=== PATIENT | male | born 1980 | race Caucasian/White ===

== ENCOUNTER 2018-04-01 08:35 | Day surgery (SDC) | payer OTHER ==
[2018-04-01] MEDS ORDERED: LACTATED RINGERS 1,000 ML IV ONE ×2 (08:45→11:47)
[2018-04-01] MEDS ORDERED: ceFAZolin 2 GM/50 ML 2 GM/50 ML BAG IV ONE (09:09)
--- NOTE | 2018-04-01 09:58 | ANESTHESIA ---
Pre-Anesthesia VS, & Labs - Diagnosis Left IH - Procedure Left IHR Height 6 ft Weight (kg) 84 kg - NPO >8 hours - Lab Results Lab results reviewed: Yes Home Medications and Allergies Home Medications: Ambulatory Orders Medication Instructions Recorded Confirmed Cyclobenzaprine [Flexeril] 10 mg PO Q8HR 03/25/18 03/28/18 SUMAtriptan succinate [Sumatriptan 100 mg PO DAILY PRN 03/25/18 03/28/18 Succinate] Allergies/Adverse Reactions: Allergies Allergy/AdvReac Type Severity Reaction Status Date / Time No Known Drug Allergies Allergy Verified 01/10/14 17:06 Anes History & Medical History - Anesthetic History Anesthesia Complications: reports: No previous complications Family history of Anesthesia Complications: Denies Family history of Malignant Hyperthermia: Denies - Medical History Cardiovascular: reports: None Pulmonary: reports: None Gastrointestinal: reports: Ulcers Urinary: reports: None Neuro: reports: None Musculoskeletal: reports: None, Other Endocrine/Autoimmune: reports: None Blood Disorders: reports: None Skin: reports: None Smoking Status: Never smoker Psychosocial: reports: No issues indicated - Surgical History General: Other Eyes Ears Nose Throat (EENT): Other Exam General: Alert, Oriented x3, Cooperative, No acute distress Dental: WNL Mouth Openin Fingerbreadth Neck Mobility: Normal Mallampati classification: I Thyromental Distance: 4-6 cm Respiratory: Lungs clear Cardiovascular: Regular rate Plan Anesthesia Type: General Consent for Procedure(s) Verified and Reviewed: Yes Code Status: Attempt Resuscitation ASA classification: 1-Healthy patient Is this case an emergency?: No
[2018-04-01] MEDS ORDERED: BUPIVACAINE 0.5% PF 30 ML VIAL ONE (10:30)
[2018-04-01] MEDS ORDERED: BUPIVACAINE 0.5% PF 30 ML VIAL INFIL ONE ×2 (11:24)
[2018-04-01] MEDS ORDERED: PROPOFOL 200 MG/20 ML VIAL IVP ONE (11:30)
[2018-04-01] MEDS ORDERED: LIDOCAINE-MPF 2% 5 ML VIAL IM ONE (11:30)
[2018-04-01] MEDS ORDERED: ONDANSETRON 4 MG/2 ML VIAL IVP ONE (11:30)
[2018-04-01] MEDS ORDERED: fentaNYL 250 MCG/5 ML VIAL IVP ONE (11:30)
[2018-04-01] MEDS ORDERED: DEXAMETHASONE 4 MG/ML VIAL IVP ONE (11:30)
[2018-04-01] MEDS ORDERED: MIDAZOLAM 2 MG/2 ML VIAL IVP ONE (11:30)
[2018-04-01] MEDS ORDERED: KETOROLAC 30 MG/ML VIAL IVP ONE (11:30)
[2018-04-01] MEDS ORDERED: fentaNYL 100 MCG/2 ML VIAL IVP ONE (11:30)
--- NOTE | 2018-04-01 12:40 | OPERATIVE REPORT ---
Operative Report - General Procedure Date: 04/01/18 Planned Procedure: Recurrent left inguinal herniorrhaphy Pre-Op Diagnosis: Recurrent left inguinal hernia Procedure Performed: Recurrent direct left inguinal herniorrhaphy with mesh and removal of old mesh Post Op Diagnosis: Recurrent direct left inguinal hernia (mesh not found to be attached to the - Procedure Note Primary Surgeon: Baldo Rivers MD Anesthesia Provider: Jai Muñoz CRNA Anesthesia Technique: General LMA, Local (30 mL's of half percent Marcaine) IV Fluids (mL): 400 Estimated Blood Loss (mL): 10 Complications: None. - Other Other Information/Narrative: OPERATIVE DESCRIPTION/REPORT: After verbal and written informed consent was obtained detailing the risks of infection, bleeding requiring transfusion with its risks, nerve injury, and , and after I met with the patient confirming the surgery and the site of the surgery and after initialing the site of the surgery with a surgical marker , the patient was brought to the operative suite and placed supine on the operating table. Great care was taken to avoid pressure points to prevent pressure necrosis or nerve injury. Monitoring devices were applied along with TEDs and pneumatic compressive stockings (to prevent DVT). The patient received preoperative antibiotics for surgical prophylaxis. Jai Muñoz CRNA sedated and anethetized the patient for the entire procedure. The patient was prepped and draped in the usual sterile manner. With the patient draped my initials were clearly visible. A "time in" then confirmed that the patient was identified with 3 identifiers (name, date and medical record number), the history and physical was in the chart, the signed consent confirming the procedure was in the chart, the patient was in the correct position, the aforementioned prophylactic measures were in place or given, we had the correct personnel and equipment to complete the procedure and that anesthesia, surgery and nursing were given an opportunuty to express any concerns. With the agreement of everyone in the room, we proceeded with the operation. An inguinal incision was made tracing the previous incision and dissection was carried down to the external oblique aponeurosis using a combination of Metzenbaum scissors and Bovie electrocautery. The external oblique aponeurosis was cleared of overlying adherent tissue, and the external ring was delineated. The external oblique was the incised with a scalpel and this incision was carried out to the external ring using Metzenbaum scissors. Having exposed the inguinal canal, what was immediately apparent was that the mesh was not attached at any point to the shelving edge and instead was secured to the conjoined tendon medially but not to the pubic tubercle. As a result the mesh had "bunched up" superiorly and laterally allowing a direct hernia to come through. The cord structures were from the canal and the mesh using a combination of blunt dissection, Bovie electrocautery and Metzenbaum scissors, and a Gennaro drain was placed around the cord structures at the level of the pubic tubercle. This Drewsey drain was then used to retract the cord structures as needed. Adherent cremasteric muscle was dissected free from the cord using Bovie electrocautery. Extensive dissection was required to free the mesh from its adhesions. Prolene sutures were encountered and removed. In as much as I could tell the mesh was excised totally. The cord was then explored using a combination of sharp and blunt dissection, and no sac was found. The hernia was found coming from the floor of the inguinal canal medial to the inferior epigastric vessels. This was dissected back to the hernia opening. The hernia was inverted back into the abdominal cavity and a large Bard Perfix plug (Ref# [id number], Lot# [id number], used by 11-23) inserted into the hernia defect. The plug was secured to the edge of the hernia defect using interrupted 2-0 PDS sutures. This permitted the floor of the inguinal canal to be repaired without the hernia in my way. The Perfix enlay patch was then placed on the floor of the inguinal canal and secured at the pubic tubercle using a 2-0 PDS suture. The mesh was the secured superiorly to the conjoined tendon and inferiorly to the shelving edge of Pouparts ligament using two separate running 2-0 PDS sutures. Of course, from my description, this mesh also covered the direct defect. The mesh was secured around the cord structures with a 2-0 PDS loosely thus creating a new internal ring. The Drewsey drain was removed. The wound was then irrigated using sterile saline, and hemostasis was obtained using Bovie electrocautery. The incision in the external oblique was approximated using a 2-0 Vicryl in a running fashion , thus reforming the external ring. The fascia and skin were then injected with 30 mL of 1/2% Marcaine for long-term anesthetic control. The skin incision was approximated with 4-0 Monocryl in a subcuticular fashion. The skin was prepped with benzoin and steristrips were applied. At this point a time out was performed that confirmed that all the counts were correct, the procedure that was performed, the blood loss, the IV fluids administered, and the patients condition. A dressing was then applied. Gentle downward traction ensured that the testes were well seated in the scrotum. Having tolerated the procedure well, the patient was taken to recovery room in good and stable condition. [facility] disclaimer: This document was created in part using voice recognition technology. Because of the inherent limitations of the system ([employer]'s [facility] Dictate user manual states that the licensee understands that speech recognition is a statistical process and that recognition errors are inherent in the process), occasional same sounding word substitutions and grammatical errors do occur and persist despite proofreading. Please read this document for context.
[2018-04-01] MEDS ORDERED: oxyCOD/ACETAMIN 5 MG/325 MG TABLET PO ONE (13:45)
[2018-04-01 14:19] VITALS: BP 134/95
== END 2018-04-01 08:36 | disposition home or self-care (01) ==
LOC: SDS 08:35
PROVIDERS: ATTEND Surgery
PROC: 0YU60JZ Supplement Left Inguinal Region with Synthetic Substitute, Open Approach (ICD-10-PCS; principal; 2018-04-01 09:30)
DX: K40.91 Unilateral inguinal hernia, without obstruction or gangrene, recurrent (principal); G43.909 Migraine, unspecified, not intractable, without status migrainosus; Z87.891 Personal history of nicotine dependence; Z87.11 Personal history of peptic ulcer disease
CPT/HCPCS: 49520; A9270; C1781; J0690; J3010; J7120

== ENCOUNTER 2018-04-28 13:46 | Outpatient (CLI) | payer OTHER | END 2018-04-28 13:47 | disposition home or self-care (01) | LOC: SC 13:46 | PROVIDERS: ATTEND Internal Medicine Pulmonary Disease | DX: G47.8 Other sleep disorders (principal); G47.10 Hypersomnia, unspecified | CPT/HCPCS: 99203; 99212 ==

== ENCOUNTER 2018-06-08 19:15 | Outpatient (CLI) | payer OTHER | END 2018-06-08 19:16 | disposition home or self-care (01) | LOC: SC 19:15 | PROVIDERS: ATTEND Internal Medicine Pulmonary Disease | DX: R06.83 Snoring (principal); G47.61 Periodic limb movement disorder; G47.10 Hypersomnia, unspecified; G47.8 Other sleep disorders; R51 Headache | CPT/HCPCS: 95810 ==

== ENCOUNTER 2018-06-16 13:29 | Outpatient (CLI) | payer OTHER ==
--- NOTE | 2018-06-16 16:19 | XRAY Report ---
Reason: OTHER DYSPHAGIA Procedure Date: 06/16/2018 Accession Number: [id number] / [id number] Procedure: FL - Modified Barium Swallow W/SP CPT Code: FULL RESULT: EXAM: MODIFIED BARIUM SWALLOW EXAM DATE: 06/16/2018 01:51 PM. CLINICAL HISTORY: OTHER DYSPHAGIA. COMPARISON: None. TECHNIQUE: Under the direction of speech pathology, patient swallowed various consistencies of barium under lateral fluoroscopic observation of the neck. Fluoroscopy Time: 57 seconds. Number of Images: 46. FINDINGS: Swallowing Mechanism: Normal oral phase and swallowing reflex. Airway Protection: Normal epiglottic motion. No episodes of tracheal penetration or aspiration with all consistencies of barium. Pharynx: Normal. No significant vallecular or piriform sinus contrast pooling. Other: None. IMPRESSION: Normal modified barium swallow. No aspiration identified. [facility]
== END 2018-06-16 13:30 | disposition home or self-care (01) ==
LOC: DI 13:29
PROVIDERS: ATTEND Otolaryngology Facial Plastic Surgery
DX: R13.19 Other dysphagia (principal)
CPT/HCPCS: 74230

== ENCOUNTER 2018-07-09 11:49 | Emergency (ER) | payer OTHER ==
--- NOTE | 2018-07-09 12:29 | ED Physician Documentation ---
PD HPI BACK PAIN - Stated complaint Stated Complaint: RT SHOUDER BLADE PX - Chief complaint Chief Complaint: Back Pain - History obtained from History obtained from: Patient - History of Present Illness Timing - onset: How many days ago (2-3) Timing - duration: Days (2-3) Timing - details: Waxing and waning Location: Mid, Right Quality: Pain, Spasm Associated symptoms: No: Fever, Weakness, Numbness Improves with: No: Rest Worsened by: Movement, Lifting Contributing factors: No: Trauma Similar symptoms before: Has not had sx before Recently seen: Not recently seen Review of Systems Constitutional: denies: Fever, Chills, Myalgias Nose: denies: Rhinorrhea / runny nose, Congestion Throat: denies: Sore throat Cardiac: denies: Pedal edema, Calf pain Respiratory: denies: Dyspnea, Cough GI: denies: Abdominal Pain, Nausea, Vomiting, Diarrhea Skin: denies: Rash, Lesions PD PAST MEDICAL HISTORY - Past Medical History Cardiovascular: None Respiratory: None Neuro: None Endocrine/Autoimmune: None GI: Ulcers : None HEENT: Chronic vision loss, Other Psych: None Musculoskeletal: None, Other Derm: None - Past Surgical History Past Surgical History: No General: Other HEENT: Other - Present Medications Home Medications: Ambulatory Orders Medication Instructions Recorded Confirmed Cyclobenzaprine [Flexeril] 10 mg PO Q8HR 03/25/18 03/28/18 SUMAtriptan succinate [Sumatriptan 100 mg PO DAILY PRN 03/25/18 03/28/18 Succinate] Amitriptyline [Elavil] 25 mg PO HS 07/09/18 07/09/18 Cyclobenzaprine [Flexeril] 1 tab PO Q6HR PRN 07/09/18 07/09/18 Dexamethasone [Decadron] 4 mg PO DAILY #5 tablet 07/09/18 HYDROcodone/ACET 7.5/325 [[place] 1 each PO Q4-6H PRN #20 tablet 07/09/18 7.5/325] Naproxen 500 mg PO BID #20 tablet 07/09/18 - Allergies Allergies/Adverse Reactions: Allergies Allergy/AdvReac Type Severity Reaction Status Date / Time No Known Drug Allergies Allergy Verified 07/09/18 12:01 - Social History Does the pt smoke?: No Smoking Status: Never smoker Does the pt drink ETOH?: Yes - Immunizations Immunizations are current?: Yes PD ED PE NORMAL - Vitals Vital signs reviewed: Yes - General General: Alert and oriented X 3, No acute distress, Well developed/nourished - HEENT HEENT: Pharynx benign - Neck Neck: Supple, no meningeal sign, No adenopathy - Cardiac Cardiac: No murmur. No: RRR (some sounds heard) - Respiratory Respiratory: Clear bilaterally - Abdomen Abdomen: Soft, Non tender - Derm Derm: Normal color, Warm and dry - Extremities Extremities: No deformity, No tenderness to palpate, Normal ROM s pain - Neuro Neuro: Alert and oriented X 3, No motor deficit, Normal speech Results - Vitals Vitals: Oxygen O2 Source Room air - EKG (time done) 13:10 Rate: Rate (enter#) Rhythm: Sinus bradycardia PD MEDICAL DECISION MAKING - ED course Complexity details: reviewed results, considered differential, d/w patient Departure - Departure Disposition: 01 Home, Self Care Clinical Impression: Acute thoracic back pain Qualifiers: Back pain laterality: right Qualified Code(s): M54.6 - Pain in thoracic spine Condition: Stable Record reviewed to determine appropriate education?: Yes Follow-Up: DEMETRIA PRADO [Primary Care Provider] - Prescriptions: Dexamethasone [Decadron] 4 mg PO DAILY #5 tablet HYDROcodone/ACET 7.5/325 [[place] 7.5/325] 1 each PO Q4-6H PRN #20 tablet PRN Reason: Pain Naproxen 500 mg PO BID #20 tablet Comments: Breast off work today. Use anti-inflammatories of naproxen 500 mg twice a day and also steroid called Decadron daily for 5 days. No need for tapering on this. Add Tylenol or hydrocodone if needed for pains. I prescribed this slightly higher strength dose of it. Follow-up with your primary care in the next 2-3 days, call for an appointment. Recheck if other symptoms develop along with the pain such as cough, fever, vomiting, lightheadedness or other concerns. Forms: Activity restrictions Discharge Date/Time: 07/09/18 14:09
[2018-07-09] MEDS ORDERED: IBUPROFEN 800 MG TABLET PO STA (12:58)
[2018-07-09] MEDS ORDERED: DEXAMETHASONE 10 MG/ML VIAL PO STA (12:58)
[2018-07-09] MEDS ORDERED: HYDROcod/ACETAM 5/325 MG TABLET PO STA ×2 (12:58→14:02)
[2018-07-09] MEDS ORDERED: CHERRY SYRUP 10 ML UDC PO ONE (13:09)
--- NOTE | 2018-07-09 13:50 | XRAY Report ---
Reason: scapular area backpain Procedure Date: 07/09/2018 Accession Number: [id number] / [id number] Procedure: XR - Chest 2 View X-Ray CPT Code: 73652 FULL RESULT: EXAM: CHEST RADIOGRAPHY EXAM DATE: 07/09/2018 01:34 PM. CLINICAL HISTORY: Scapular area back pain. COMPARISON: None. TECHNIQUE: 2 views. FINDINGS: Lungs/Pleura: No focal opacities evident. No pleural effusion. No pneumothorax. Normal volumes. Mediastinum: Heart and mediastinal contours are unremarkable. Other: None. IMPRESSION: Normal 2-view chest radiography. [facility]
[2018-07-09 14:11] VITALS: BP 130/88
== END 2018-07-09 14:09 | disposition home or self-care (01) ==
LOC: ED 11:49
DX: M54.6 Pain in thoracic spine (principal); R00.1 Bradycardia, unspecified
CPT/HCPCS: 71046; 93005; 99283; A9270

== ENCOUNTER 2018-07-28 09:18 | Outpatient (CLI) | payer OTHER | END 2018-07-28 09:19 | disposition home or self-care (01) | LOC: SC 09:18 | PROVIDERS: ATTEND Internal Medicine Pulmonary Disease | DX: G47.61 Periodic limb movement disorder (principal); G47.10 Hypersomnia, unspecified | CPT/HCPCS: 99212; 99213 ==